=== PATIENT | male | born 1960 | race Caucasian/White ===

== ENCOUNTER 2019-02-23 17:42 | Inpatient (IN) | payer BC ==
[~2019-02-23] VITALS: Ht 170.2 cm; Wt 73.5 kg
[2019-02-23 17:49] VITALS: Ht 170.2 cm; Wt 73.5 kg
--- NOTE | 2019-02-23 18:03 | NUR ---
PT BIB AMBULANCE WITH C/C OF SEIZURE, X2 EPISODES TODAY. PER MEDIC, PT HAD A FALL LAST NIGHT AND HIT HIS HEAD. UNKNOWN LOC. PT WENT TO WORK THIS MORNING AND HAD A SEIZURE AT WORK AND WAS EVALUATED AT [facility]. CT SCAN WAS NEGATIVE FOR BLEED. 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 PT DOES NOT RECALL HAVING A FALL LAST NIGHT, OTHERWISE PT SEEMS TO BE ABLE TO REMEMBER EVENTS PRIOR. PT HAS NO NEURO DEFICITS, NO TRAUMA OR INJURY TO HEAD NOTED, NO FACIAL ASYMMETRY. PT DENIES FEELING ANY PAIN AT THIS TIME. PT AWAKE ALERT, RESP E/U, NAD NOTED. MSE COMPLETED BY DR. PIPER AND SEIZURE PRECAUTIONS IN PLACE.
[2019-02-23 18:27] LABS: CALCIUM 8.5 mg/dL (8.5-10.1); CARBON DIOXIDE 20.8 mmol/L (21-32); CREATININE SERUM 1.6 mg/dL (0.7-1.3); POTASSIUM SERUM 4.1 mmol/L (3.5-5.1)
[2019-02-23 18:31] LABS: BILIRUBIN TOTAL 0.47 mg/dL (0.20-1.00); MAGNESIUM 1.9 mg/dL (1.8-2.4); TOTAL PROTEIN, SERUM 7.4 g/dL (6.4-8.2)
--- NOTE | 2019-02-23 18:40 | NUR ---
PT MEDICATED PER MD ORDER. PT VERBALIZED UNDERSTANDING OF MEDICATION PRIOR TO ADMINISTRATION. IS AT BEDSIDE.
[2019-02-23 18:43] LABS: T3 TOTAL 0.89 ng/mL
[2019-02-23 18:44] LABS: FREE T4 0.66 ng/dL (0.76-1.46); FREE THYROXINE INDEX 0.5 ug/dL (1.4-4.5); T4(THYROXINE) 1.5 ug/dL (4.7-13.3)
--- NOTE | 2019-02-23 18:55 | NUR ---
TELE NEURO MONITOR SET UP IN ROOM.
--- NOTE | 2019-02-23 19:31 | NUR ---
NEURO DOCTOR PRESENT BY TELE COMPUTER
[2019-02-23 19:45] LABS: AMPHETAMINE QUAL UR NONE DETECTED (See below)
--- NOTE | 2019-02-23 20:51 | NUR ---
PT AND PT'S EXPRESSING CONCERNS ABOUT FUTURE CARE. MADE AWARE.
--- NOTE | 2019-02-23 21:51 | NUR ---
PT STATES THAT TRYING TO LIFT HIMSELF OUT OF BED CAUSES PAIN TO HIS RIGHT SHOULDER AREA. PT IS AWAKE, LAYING IN GURNEY, WITH CALL LIGHT IN REACH, AND AT BEDSIDE.
[2019-02-23 21:53] LABS: CHOLESTEROL/HDL RATIO 4.8
--- NOTE | 2019-02-23 22:18 | NUR ---
PT TRANSPORTED TO [facility] AT THIS TIME BY EMT ELIDA AND MIRLANDE CHAVEZ. PT IS AWAKE AND ALERT, RESP E/U, ACCOMPANIED BY . PT VERBALIZED UNDERSTANDING OF PLAN OF CARE PRIOR TO TRANSPORT. REPORT PREVIOUSLY CALLED TO MIRLANDE CHURCH BY MIRLANDE CORONADO.
[2019-02-23 22:39] VITALS: BP 111/66
--- NOTE | 2019-02-23 22:42 | NUR ---
RECEIVED PT FROM ED VIA [place]. ORIENTED PT TO ROOM AND SURROUNDINGS. IV NOTED TO RAC PATENT AND INTACT. TELE 6 PLACED ON PT READING NSR. INSTRUCTED PT ON THE USE OF CALL LIGHT FOR ASSISTANCE. ENDORSED PT TO PRIMARY NURSE [place]
--- NOTE | 2019-02-23 23:00 | NUR ---
REC'D REPORT FROM ROSENDO RN. PT ADM FOR SZ X2. PT DOES NOT REMEMBER OCCURENCE BUT C/O SOME TENDERNESS TO R SIDE OF HEAD BEHIND THE EAR AND R SHOULDER. SMALL BUMP PALPATED BEHIND R EAR BUT SKIN INTACT. PT REC'D PAIN MEDS IN ED AND DENIES PAIN AT THIS TIME. SZ PREC IN PLACE. AAOX4, SPEECH CLEAR, FOLLOWS COMMANDS. TELE 6. DENIES CP, DIZZINESS, OR PALPITATIONS. NO EDEMA NOTED. DENIES ABD PAIN, TENDERNESS, OR N/V. VOIDING FREELY. AMBULATORY. SKIN INTACT. IV TO RAC FLUSHED AND PATENT, SITE WNL. ORIENTED TO DEVICES AND SURROUNDINGS. CALL LIGHT WITHIN REACH, BED AT LOWEST POSITION. WILL CONTINUE TO MONITOR.
--- NOTE | 2019-02-24 00:24 | NUR ---
PT RESTING IN BED WITH EYES CLOSED. NO SIGNS OF DISTRESS NOTED. BREATHING EVEN/UNLABORED ON RA. CALL LIGHT WITHIN REACH, BED AT LOWEST POSITION. WILL CONTINUE TO MONITOR.
--- NOTE | 2019-02-24 02:11 | NUR ---
DR. GALLARDO MADE AWARE OF MISSING DIET ORDER.
[2019-02-24 04:00] LABS: BASOPHIL % 0.2 % (0-2); PLATELET COUNT 244 x10^3mcL (130-400); RED CELL DISTRIBUTION WIDTH 16.1 % (11.5-14.5)
--- NOTE | 2019-02-24 04:52 | NUR ---
REMINDED DR. GALLARDO TO ADD DIET VIA [facility]
[2019-02-24 05:09] VITALS: BP 132/79
--- NOTE | 2019-02-24 05:20 | NUR ---
PT RESTING IN BED WITH EYES CLOSED. BREATHING EVEN/UNLABORED ON RA. NO S/SX OF PAIN. NO EPISODES OF SZ. PT TO START ON PO KEPPRA TODAY. CALL LIGHT WITHIN REACH, BED AT LOWEST POSITION. WILL ENDORSE TO DAY NURSE.
[2019-02-24 06:17] LABS: BASOPHIL % 0.4 % (0-2); PLATELET COUNT 226 x10^3mcL (130-400)
[2019-02-24 06:40] LABS: CALCIUM 8.1 mg/dL (8.5-10.1); CARBON DIOXIDE 26.5 mmol/L (21-32); CHLORIDE SERUM 108 mmol/L (98-107); CREATININE SERUM 1.1 mg/dL (0.7-1.3); GFR1 > 60 mL/min; GLUCOSE SERUM 98 mg/dL (74-106); MAGNESIUM 2.1 mg/dL (1.8-2.4); PHOSPHOROUS 3.2 mg/dL (2.5-4.9); POTASSIUM SERUM 3.8 mmol/L (3.5-5.1); SODIUM SERUM 144 mmol/L (136-145)
--- NOTE | 2019-02-24 07:04 | NUR ---
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
[2019-02-24 08:23] VITALS: BP 123/65
[2019-02-24 11:19] LABS: microscopic required? YES; urine erythrocyte TRACE (NEGATIVE)
[2019-02-24 11:49] VITALS: BP 132/72
--- NOTE | 2019-02-24 14:06 | NUR ---
PT IS BEING TAKEN DOWN FOR MRI OF BRAIN AT THIS TIME, IN NAD, AMBULATORY, A/O X 4, TAKEN BY WHEELCHAIR, TELE RETURNED TO [place] [facility].
--- NOTE | 2019-02-24 15:24 | NUR ---
PT BACK FROM MRI AT THIS TIME, NO ADVERSE REACTIONS OR EVENTS REPORTED, PT AMBULATORY, WILL CONTINUE TO MONITOR.
[2019-02-24 17:37] VITALS: BP 118/78
--- NOTE | 2019-02-24 19:19 | NUR ---
REPORT GIVEN TO POSTAGE MACHINE OPERATOR NURSE AT THE BEDSIDE, CARE ENDORSED.
--- NOTE | 2019-02-24 19:49 | NUR ---
RECEIVED AWAKE IN BED, WATCHING TV. DENIES ANY PAIN/DISCOMFORT. RESPIRATION EVEN AND UNLABORED. IV ACCESS ON THE RAC INTACT AND PATENT. NO REDNESS NOTED AT THE IV SITE.PLACED CALL LIGHT WITHIN REACH. DENIES ANY PAIN/DISCOMFORT AT THIS TIME.
[2019-02-24 20:31] VITALS: BP 121/68
--- NOTE | 2019-02-25 | NUR ---
EYES CLOSED, NO FACIAL GRIMACING NOTED. NO S/S OF PAIM/DISCOMFORT. APPARENTLY ASLEEP BUT AROUSABLE TO VERBAL STIMU;I. KEPT CLEAN AND DRY.
--- NOTE | 2019-02-25 05:35 | NUR ---
PT RESTING WUIETLY IN BED. NO S/S OF PAIN/DISCOMFORT.
[2019-02-25 06:03] VITALS: BP 129/78
[2019-02-25 06:19] LABS: CARBON DIOXIDE 29.3 mmol/L (21-32); CHLORIDE SERUM 107 mmol/L (98-107); CREATININE SERUM 1.2 mg/dL (0.7-1.3); GFR1 > 60 mL/min; GLUCOSE SERUM 100 mg/dL (74-106); MAGNESIUM 2.1 mg/dL (1.8-2.4); PHOSPHOROUS 3.6 mg/dL (2.5-4.9); POTASSIUM SERUM 4.4 mmol/L (3.5-5.1); SODIUM SERUM 143 mmol/L (136-145)
[2019-02-25 06:20] LABS: BASOPHIL % 0.7 % (0-2); PLATELET COUNT 217 x10^3mcL (130-400)
--- NOTE | 2019-02-25 07:22 | NUR ---
ASSUMED CARE OF PATIENT. ALERT AND AWAKE THIS MORNING. NO COMPLAINTS OF PAIN OR DISCOMFOTR. NO APPARENT DISTRESS NOTED. IV ON RAC SALINE LOCKED. WILL CONTINUE TO MONITOR.
[2019-02-25 08:31] VITALS: BP 126/87
--- NOTE | 2019-02-25 09:15 | NUR ---
PATIENT RESTING IN BED WITH AT BEDSIDE. COMPLAINING OF TENDERNESS OF RIGHT BACK NECK AND SHOULDER S/P FALL. ONLY ENDORSES PAIN WHEN AREA IS PALPATED. NO NEW ISSUES.
[2019-02-25] MEDS ORDERED: KEPPRA500 MG PO (11:07)
[2019-02-25 11:14] VITALS: BP 126/87
--- NOTE | 2019-02-25 11:38 | NUR ---
DISCHARGE PAPERWORK AND EDUCATION PROVIDED. TELEMONITOR REMOVED. IV REMOVED WITH CATHTER INTACT.
--- NOTE | 2019-02-25 11:48 | NUR ---
PATIENT DISCAHRGED VIA WHEELCHAIR. NO COMPLAINTS OF PAIN OR DISCOMFORT. NO APPARENT DISTRESS NOTED. ID BAND REMOVED. AT SIDE.
== END 2019-02-25 11:45 | disposition home or self-care (01) | DRG 100 ==
LOC: ED 17:42 → DU 20:59
PROVIDERS: Emergency Medicine; ADMIT Internal Medicine
DX: G40.909 Epilepsy, unspecified, not intractable, without status epilepticus (principal); N17.0 Acute kidney failure with tubular necrosis; E78.5 Hyperlipidemia, unspecified; R73.03 Prediabetes; Z82.49 Family history of ischemic heart disease and other diseases of the circulatory system; W19.XXXA Unspecified fall, initial encounter; Y92.098 Other place in other non-institutional residence as the place of occurrence of the external cause
CPT/HCPCS: 83880; 84439; A9577; C9113; G0378; J1953; J7030